=== PATIENT | female | born 1955 | race Hispanic/Latino ===

== ENCOUNTER 2021-05-06 14:06 | Inpatient (IN) | payer MEDICARE, MEDICAID ==
[2021-05-06 14:33] LABS: Actual Bicarbonate (HCO3a) 18.2 mEq/L (22-28); Base Excess (BEa) -11.2 mEq/L (-2.0 to +3.0); CO2 Tension 57.2 mmHg (35.0-45.0); Calcium, Ionized (arterial) 1.18 mmol/L (1.12-1.30); Carboxyhemoglobin (COHb) 0.4 gm% (0.0-3.0); Hemoglobin (Hb) 11.5 g/dL (12.0-16.0); Potassium - ABG Lab 5.6 mmol/L (3.70-5.30); Puncture Site RRA; pH, Arterial 7.12 (7.35-7.45)
[2021-05-06 14:45] LABS: Bilirubin Neg (Negative); Blood, Urine Negative (Negative); Glucose, Urine (Dipstick) Normal (Negative); Ketone, Urine Negative (Negative); Leukocyte Negative (Negative); Nitrite Negative (Negative); Protein, Urine (Dipstick) 500 mg/dl (Neg-Trace); Specific Gravity, Urine 1.025 (1.002-1.036); Urobilinogen Normal mg/dL (Less than 2)
[2021-05-06 14:49] LABS: Hemoglobin 10.2 g/dL (12.0-15.5); Mean Corpuscular HGB CONC 29.5 g/dL (32.0-36.0); Mean Corpuscular Hemoglobin 28.7 pg (27.0-33.0); Mean Corpuscular Volume 97.2 fl (81.6-98.3); Mean Platelet Volume 11.1 fl (7.4-10.4); Platelet Count 343 10x3/uL (150-450); RBC Distribution Width 14.9 % (11.5-14.5); Red Blood Cell (RBC) Count 3.56 10x6/uL (3.90-5.03); White Blood Cell (WBC) Count 28.2 10x3/uL (3.5-10.5)
[2021-05-06 14:50] LABS: MDiff Complete? YES; Manual Diff?? YES
[2021-05-06 14:56] LABS: Clarity Cloudy (Clear)
[2021-05-06 15:01] LABS: Bacteria/HPF 1+ HPF (None Seen); Mucous/LPF 1+ LPF (<2+); Renal Epithelial 0-3 HPF (None Seen); Squamous Epithelial 0-3 HPF (0-3); WBC/HPF 0-3 HPF (0-3)
[2021-05-06 15:02] LABS: White Blood Cell Cast 0-3 LPF (None Seen)
[2021-05-06 15:03] LABS: ALT (SGPT) 8 U/L (8-55); AST (SGOT) 12 U/L (5-34); Albumin 3.4 g/dL (3.4-4.8); Alkaline Phosphatase 114 U/L (40-110); Anion Gap 18 mmol/L (10-20); BUN (Urea Nitrogen) 48 mg/dL (9.8-20.1); Bilirubin, Total 0.4 mg/dL (0.2-1.2); Calc. Creatinine Clearance 0 mL/min (70-130); Calcium 8.2 mg/dL (7.8-10.44); Carbon Dioxide 17 mmol/L (23-31); Chloride 102 mmol/L (98-107); Globulin 3.3 g/dL (2.4-3.5); Glucose 149 mg/dL (80-115); Protein, Total 6.7 g/dL (5.8-8.1); Sodium 131 mmol/L (136-145)
[2021-05-06] MEDS ORDERED: Sodium Bicarb 50 MEQ/50 ML Abboject 8.4% SYRINGE ONE ×2 (15:06→15:20)
[2021-05-06 15:11] LABS: Band 4 % (5-11); Lymphocytes 1 % (21-51); Monocytes 5 % (0-10); Neutrophil 89 % (42-75); Reactive Lymphocytes 1 % (0-10)
[2021-05-06 15:12] LABS: Platelet Morphology Comment Appears Adequate
[2021-05-06 15:14] LABS: Dohle Bodies SLIGHT; Toxic Granulation SLIGHT; Vacuoles SLIGHT
[2021-05-06 15:15] LABS: Anisocytosis SLIGHT = 6-15 cells (100X) (0-5/hpf)
[2021-05-06] MEDS ORDERED: cefTRIAXone\\ROCEPHIN 1 GM VIAL ONE (16:39)
[2021-05-06 16:53] LABS: Base Excess (BEa) -7.1 mEq/L (-2.0 to +3.0); CO2 Tension 62.5 mmHg (35.0-45.0); Calcium, Ionized (arterial) 1.16 mmol/L (1.12-1.30); Carboxyhemoglobin (COHb) 0.2 gm% (0.0-3.0); Hemoglobin (Hb) 11.3 g/dL (12.0-16.0); Potassium - ABG Lab 5.5 mmol/L (3.70-5.30); Puncture Site RRA; pH, Arterial 7.16 (7.35-7.45)
[2021-05-06] MEDS ORDERED: Acetaminophen 650 MG Suppository PR PRN (16:57)
[2021-05-06] MEDS ORDERED: Senokot S 8.6-50 MG TAB PO PRN (16:57)
[2021-05-06] MEDS ORDERED: Ondansetron PF 4 MG/2 ML Vial IVP PRN (16:57)
[2021-05-06 16:58] LABS: ALV-art Gradient 344.275 mmHg (0-20)
[2021-05-06] MEDS ORDERED: Insulin Regular 300 UNITS/3 ML VIAL IVP SCH (17:02)
[2021-05-06] MEDS ORDERED: Dextrose 5% in Water 1,000 ML IV PRN (17:05)
[2021-05-06] MEDS ORDERED: Dextrose 50% Abboject 50 ML SYRINGE SLOW IVP PRN (17:05)
[2021-05-06] MEDS ORDERED: Albuterol Sulfate 2.5 mg/3 ml Neb NEB SCH (17:15)
[2021-05-06] MEDS ORDERED: Sodium Bicarbonate 75 MEQ in Sodium Chloride 0.45% 1,000 ML IV SCH (17:15)
[2021-05-06] MEDS ORDERED: Dextrose 50% Abboject 50 ML SYRINGE SLOW IVP SCH (17:15)
[2021-05-06] MEDS ORDERED: VANCOMYCIN 2 GRAM/400 ML BAG 2 GM in Premix Bag 1 BAG IVPB SCH (18:30)
[2021-05-06] MEDS ORDERED: Calcium Gluconate 4.6 MEQ in Sodium Chloride 0.9% 100 ML IVPB SCH (18:36)
[2021-05-06] MEDS ORDERED: Sodium Bicarbonate 150 MEQ, Admixture Fee 1 EACH in Dextrose 5% in Water 1,000 ML IV SCH (18:45)
[2021-05-06 19:02] LABS: Creatinine, Urine 135.85 mg/dL (47-110); Protein, Urine Random Quant Less than 10 mg/dL (1-14)
[2021-05-06 20:04] LABS: Strep pneumo Urine Ag NEGATIVE (NEGATIVE)
[2021-05-06] MEDS: Heparin 5,000 UNITS/ML VIAL SC SCH (20:51)
[2021-05-06] MEDS: Cefepime 1 GM in Sodium Chloride 0.9% 100 ML IVPB SCH (20:51)
[2021-05-06] MEDS: Famotidine/PF 20 mg/2ml Vial SLOW IVP SCH (20:52)
[2021-05-06 21:03] LABS: Anion Gap 15 mmol/L (10-20); BUN (Urea Nitrogen) 52 mg/dL (9.8-20.1); Calc. Creatinine Clearance 44 mL/min (70-130); Calcium 8.7 mg/dL (7.8-10.44); Carbon Dioxide 22 mmol/L (23-31); Chloride 101 mmol/L (98-107); Glucose 214 mg/dL (80-115); Potassium 4.8 mmol/L (3.5-5.1); Sodium 133 mmol/L (136-145)
[2021-05-06 21:42] LABS: Actual Bicarbonate (HCO3a) 21.5 mEq/L (22-28); Calcium, Ionized (arterial) 1.17 mmol/L (1.12-1.30); Carboxyhemoglobin (COHb) 0.1 gm% (0.0-3.0); Hemoglobin (Hb) 10.6 g/dL (12.0-16.0); O2 Tension (PaO2), arterial 164.8 mmHg (> 80.0); Potassium - ABG Lab 4.8 mmol/L (3.70-5.30); Puncture Site LRA; pH, Arterial 7.13 (7.35-7.45)
[2021-05-06] MEDS ORDERED: Fentanyl BOLUS 250 ML IVPB PRN (23:15)
[2021-05-06] MEDS ORDERED: Morphine 2 MG/ML VIAL SLOW IVP PRN (23:15)
[2021-05-06] MEDS ORDERED: Lorazepam 2 MG/ML VIAL SLOW IVP PRN (23:15)
[2021-05-06] MEDS ORDERED: DISCONTINUE PREVIOUS NARCOTIC PAIN MEDICATIONS AND BENZODIAZEPINES FS SCH (23:15)
[2021-05-06] MEDS ORDERED: fentaNYL Citrate-0.9 % NaCl/PF 100 ML IVPB SCH (23:15)
[2021-05-06] MEDS ORDERED: Propofol BOLUS 1,000 MG/100 ML VIAL IV PRN (23:15)
[2021-05-06] MEDS ORDERED: Propofol 1,000 MG/100 ML VIAL IV ONE (23:18)
[2021-05-06] MEDS ORDERED: Rocuronium Bromide 10 MG/ML (10ML VIAL) ONE (23:25)
[2021-05-07] MEDS: hydrALAZINE 20 MG/ML VIAL SLOW IVP PRN (00:56)
[2021-05-07 01:00] LABS: Actual Bicarbonate (HCO3a) 21.2 mEq/L (22-28); Base Excess (BEa) -4.7 mEq/L (-2.0 to +3.0); CO2 Tension 42.2 mmHg (35.0-45.0); Calcium, Ionized (arterial) 1.11 mmol/L (1.12-1.30); Carboxyhemoglobin (COHb) 0.7 gm% (0.0-3.0); Hemoglobin (Hb) 11.8 g/dL (12.0-16.0); Potassium - ABG Lab 4.8 mmol/L (3.70-5.30); Puncture Site LRA; pH, Arterial 7.32 (7.35-7.45)
[2021-05-07] MEDS ORDERED: Midazolam HCl 2 mg/2 ml Vial IVP SCH (02:15)
[2021-05-07] MEDS: Propofol 1,000 MG/100 ML VIAL IV PRN ×7 (02:35→21:57)
[2021-05-07 04:01] LABS: Hemoglobin 8.9 g/dL (12.0-15.5); Mean Corpuscular HGB CONC 31.3 g/dL (32.0-36.0); Mean Corpuscular Hemoglobin 28.9 pg (27.0-33.0); Mean Corpuscular Volume 92.2 fl (81.6-98.3); Mean Platelet Volume 11.8 fl (7.4-10.4); Platelet Count 324 10x3/uL (150-450); RBC Distribution Width 14.8 % (11.5-14.5); Red Blood Cell (RBC) Count 3.08 10x6/uL (3.90-5.03); White Blood Cell (WBC) Count 18.5 10x3/uL (3.5-10.5)
[2021-05-07 04:14] LABS: Albumin 2.9 g/dL (3.4-4.8); Anion Gap 18 mmol/L (10-20); BUN (Urea Nitrogen) 53 mg/dL (9.8-20.1); BUN/Creatinine Ratio 17.43; Calc. Creatinine Clearance 45 mL/min (70-130); Carbon Dioxide 20 mmol/L (23-31); Chloride 102 mmol/L (98-107); Glucose 193 mg/dL (80-115); Phosphorus 5.6 mg/dL (2.3-4.7); Potassium 4.7 mmol/L (3.5-5.1); Sodium 135 mmol/L (136-145)
[2021-05-07 04:25] LABS: Eosinophils 2 % (0-10); Lymphocytes 5 % (21-51); Monocytes 5 % (0-10); Neutrophil 87 % (42-75)
[2021-05-07 04:26] LABS: Platelet Morphology Comment Appears Adequate; RBC Morphology Normal
[2021-05-07 04:32] LABS: MDiff Complete? YES
[2021-05-07 07:42] LABS: Actual Bicarbonate (HCO3a) 18.9 mEq/L (22-28); Base Excess (BEa) -4.5 mEq/L (-2.0 to +3.0); Calcium, Ionized (arterial) 1.05 mmol/L (1.12-1.30); Carboxyhemoglobin (COHb) 0.2 gm% (0.0-3.0); Hemoglobin (Hb) 9.4 g/dL (12.0-16.0); O2 Tension (PaO2), arterial 134.3 mmHg (> 80.0); Potassium - ABG Lab 4.2 mmol/L (3.70-5.30); Puncture Site LRA; pH, Arterial 7.43 (7.35-7.45)
[2021-05-07] MEDS: Heparin 5,000 UNITS/ML VIAL SC SCH ×3 (09:23→20:00)
[2021-05-07] MEDS: Cefepime 1 GM in Sodium Chloride 0.9% 100 ML IVPB SCH ×2 (09:23→19:59)
[2021-05-07] MEDS: Sodium Bicarbonate 75 MEQ, Admixture Fee 1 EACH in Dextrose 5% in Water 500 ML IV SCH ×3 (09:46→23:53)
[2021-05-07] MEDS: HumaLOG 300 UNITS/3 ML VIAL SC PRN ×3 (12:54→22:00)
[2021-05-07 18:03] LABS: Vancomycin, Random 23.3 ug/mL (See Comment)
[2021-05-07] MEDS: Famotidine/PF 20 mg/2ml Vial SLOW IVP SCH (19:59)
[2021-05-07 20:05] LABS: Sodium, Urine 156 mmol/L (Not Available)
[2021-05-07 20:10] LABS: Urea Nitrogen, Random Urine 544 mg/dl
[2021-05-08] MEDS: Propofol 1,000 MG/100 ML VIAL IV PRN ×9 (01:47→22:36)
[2021-05-08 04:07] LABS: Hemoglobin 8.9 g/dL (12.0-15.5); Mean Corpuscular HGB CONC 32.1 g/dL (32.0-36.0); Mean Corpuscular Hemoglobin 29.1 pg (27.0-33.0); Mean Corpuscular Volume 90.5 fl (81.6-98.3); Mean Platelet Volume 11.6 fl (7.4-10.4); Platelet Count 317 10x3/uL (150-450); RBC Distribution Width 14.8 % (11.5-14.5); Red Blood Cell (RBC) Count 3.06 10x6/uL (3.90-5.03); White Blood Cell (WBC) Count 15.1 10x3/uL (3.5-10.5)
[2021-05-08 04:10] LABS: Anion Gap 17 mmol/L (10-20); BUN (Urea Nitrogen) 57 mg/dL (9.8-20.1); Calc. Creatinine Clearance 47 mL/min (70-130); Calcium 8.1 mg/dL (7.8-10.44); Carbon Dioxide 24 mmol/L (23-31); Chloride 98 mmol/L (98-107); Glucose 189 mg/dL (80-115); Potassium 4.1 mmol/L (3.5-5.1); Sodium 135 mmol/L (136-145)
[2021-05-08 04:43] LABS: MDiff Complete? YES
[2021-05-08 04:44] LABS: Platelet Morphology Comment Appears Adequate; RBC Morphology Normal
[2021-05-08 04:47] LABS: Eosinophils 3 % (0-10); Lymphocytes 14 % (21-51); Monocytes 3 % (0-10); Neutrophil 80 % (42-75)
[2021-05-08] MEDS: HumaLOG 300 UNITS/3 ML VIAL SC PRN ×4 (05:21→22:15)
[2021-05-08] MEDS: Sodium Bicarbonate 75 MEQ, Admixture Fee 1 EACH in Dextrose 5% in Water 500 ML IV SCH ×2 (05:40→12:09)
[2021-05-08 07:40] LABS: Actual Bicarbonate (HCO3a) 24.3 mEq/L (22-28); Base Excess (BEa) 0.5 mEq/L (-2.0 to +3.0); CO2 Tension 35.4 mmHg (35.0-45.0); Calcium, Ionized (arterial) 0.99 mmol/L (1.12-1.30); Carboxyhemoglobin (COHb) 0.2 gm% (0.0-3.0); Hemoglobin (Hb) 9.1 g/dL (12.0-16.0); Puncture Site RRA; pH, Arterial 7.45 (7.35-7.45)
[2021-05-08] MEDS: Heparin 5,000 UNITS/ML VIAL SC SCH ×3 (08:24→22:00)
[2021-05-08] MEDS: Cefepime 1 GM in Sodium Chloride 0.9% 100 ML IVPB SCH ×2 (08:28→21:59)
[2021-05-08] MEDS: Albumin 25% 25 GM/100 ML BOT IVPB SCH ×2 (14:13→22:00)
[2021-05-08 18:37] LABS: Vancomycin, Random 18.8 ug/mL (See Comment)
[2021-05-08] MEDS: Famotidine/PF 20 mg/2ml Vial SLOW IVP SCH (22:00)
[2021-05-08] MEDS ORDERED: Furosemide 40 MG/4 ML VIAL SLOW IVP SCH (23:45)
[2021-05-09] MEDS: Propofol 1,000 MG/100 ML VIAL IV PRN ×7 (01:38→20:59)
[2021-05-09] MEDS: hydrALAZINE 20 MG/ML VIAL SLOW IVP PRN (02:36)
[2021-05-09 03:49] LABS: Hemoglobin 8.6 g/dL (12.0-15.5); Mean Corpuscular HGB CONC 32.5 g/dL (32.0-36.0); Mean Corpuscular Hemoglobin 28.8 pg (27.0-33.0); Mean Corpuscular Volume 88.6 fl (81.6-98.3); Mean Platelet Volume 11.4 fl (7.4-10.4); Platelet Count 363 10x3/uL (150-450); RBC Distribution Width 14.9 % (11.5-14.5); Red Blood Cell (RBC) Count 2.99 10x6/uL (3.90-5.03); White Blood Cell (WBC) Count 15.4 10x3/uL (3.5-10.5)
[2021-05-09 03:57] LABS: Anion Gap 18 mmol/L (10-20); BUN (Urea Nitrogen) 52 mg/dL (9.8-20.1); Calc. Creatinine Clearance 58 mL/min (70-130); Carbon Dioxide 24 mmol/L (23-31); Chloride 101 mmol/L (98-107); Potassium 3.8 mmol/L (3.5-5.1); Sodium 139 mmol/L (136-145)
[2021-05-09 03:58] LABS: Calcium 8.3 mg/dL (7.8-10.44); Glucose 209 mg/dL (80-115)
[2021-05-09 03:59] LABS: Iron 26 ug/dL (50-170); Iron Binding Capacity, Total 161 mcg/dL (265-497)
[2021-05-09 04:38] LABS: Platelet Morphology Comment Appears Adequate
[2021-05-09 04:39] LABS: RBC Morphology Normal
[2021-05-09 04:46] LABS: Eosinophils 1 % (0-10); Lymphocytes 12 % (21-51); Monocytes 8 % (0-10); Neutrophil 79 % (42-75)
[2021-05-09 05:20] LABS: MDiff Complete? YES
[2021-05-09] MEDS: HumaLOG 300 UNITS/3 ML VIAL SC PRN ×4 (05:54→22:25)
[2021-05-09] MEDS ORDERED: Vancomycin HCl 750 MG in Sodium Chloride 0.9% 250 ML 250 ML IVPB SCH (06:00)
[2021-05-09] MEDS: Albumin 25% 25 GM/100 ML BOT IVPB SCH (06:11)
[2021-05-09] MEDS ORDERED: Iron, Sodium Ferric Gluconate 250 MG in Sodium Chloride 0.9% 250 ML 250 ML IVPB SCH ×2 (09:00→12:15)
[2021-05-09] MEDS ORDERED: Furosemide 40 MG/4 ML VIAL SLOW IVP SCH ×2 (09:00→10:30)
[2021-05-09] MEDS: Amlodipine 5 MG TAB PO SCH (10:16)
[2021-05-09] MEDS: Cefepime 1 GM in Sodium Chloride 0.9% 100 ML IVPB SCH ×2 (10:17→20:59)
[2021-05-09] MEDS: Heparin 5,000 UNITS/ML VIAL SC SCH ×3 (10:17→21:00)
[2021-05-09] MEDS ORDERED: Polyethylene Glycol 3350 17 GM Packet PER TUBE SCH (11:00)
[2021-05-09] MEDS ORDERED: Metoprolol Tartrate 25 MG TAB PO SCH (11:00)
[2021-05-09] MEDS: Dexmedetomidine In 0.9 % NaCl 100 ML IVPB SCH ×2 (11:20→20:59)
[2021-05-09] MEDS: Famotidine/PF 20 mg/2ml Vial SLOW IVP SCH (21:00)
[2021-05-09] MEDS: Metoprolol Tartrate 25 MG TAB PO SCH (21:00)
[2021-05-10 04:22] LABS: Hemoglobin 8.3 g/dL (12.0-15.5); Mean Corpuscular HGB CONC 31.6 g/dL (32.0-36.0); Mean Corpuscular Hemoglobin 28.7 pg (27.0-33.0); Mean Platelet Volume 11.8 fl (7.4-10.4); Platelet Count 363 10x3/uL (150-450); RBC Distribution Width 14.8 % (11.5-14.5); Red Blood Cell (RBC) Count 2.89 10x6/uL (3.90-5.03)
[2021-05-10 04:32] LABS: Anion Gap 19 mmol/L (10-20); BUN (Urea Nitrogen) 58 mg/dL (9.8-20.1); Calc. Creatinine Clearance 54 mL/min (70-130); Calcium 8.5 mg/dL (7.8-10.44); Carbon Dioxide 24 mmol/L (23-31); Chloride 101 mmol/L (98-107); Glucose 236 mg/dL (80-115); Potassium 3.7 mmol/L (3.5-5.1); Sodium 140 mmol/L (136-145)
[2021-05-10 04:45] LABS: MDiff Complete? YES; Platelet Morphology Comment Appears Adequate; RBC Morphology Normal
[2021-05-10 04:47] LABS: Eosinophils 3 % (0-10); Lymphocytes 14 % (21-51); Monocytes 6 % (0-10); Neutrophil 77 % (42-75); Vancomycin, Random 19.8 ug/mL (See Comment)
[2021-05-10] MEDS: HumaLOG 300 UNITS/3 ML VIAL SC PRN ×5 (05:52→23:50)
[2021-05-10] MEDS: hydrALAZINE 20 MG/ML VIAL SLOW IVP PRN ×2 (05:54→20:51)
[2021-05-10] MEDS: Amlodipine 5 MG TAB PO SCH (08:22)
[2021-05-10] MEDS: Cefepime 1 GM in Sodium Chloride 0.9% 100 ML IVPB SCH ×2 (08:23→20:38)
[2021-05-10] MEDS: Metoprolol Tartrate 25 MG TAB PO SCH ×2 (08:24→20:39)
[2021-05-10] MEDS: Polyethylene Glycol 3350 17 GM Packet PER TUBE SCH (08:24)
[2021-05-10] MEDS: Heparin 5,000 UNITS/ML VIAL SC SCH ×3 (08:24→20:37)
[2021-05-10] MEDS ORDERED: Furosemide 40 MG/4 ML VIAL SLOW IVP SCH ×2 (09:00→21:45)
[2021-05-10] MEDS: Iron, Sodium Ferric Gluconate 250 MG in Sodium Chloride 0.9% 250 ML 250 ML IVPB SCH (09:24)
[2021-05-10 10:46] LABS: Actual Bicarbonate (HCO3a) 26.9 mEq/L (22-28); Base Excess (BEa) 4.2 mEq/L (-2.0 to +3.0); Calcium, Ionized (arterial) 1.06 mmol/L (1.12-1.30); Carboxyhemoglobin (COHb) 0.1 gm% (0.0-3.0); Hemoglobin (Hb) 9.5 g/dL (12.0-16.0); O2 Tension (PaO2), arterial 70.4 mmHg (> 80.0); Potassium - ABG Lab 3.4 mmol/L (3.70-5.30); Puncture Site LRA; pH, Arterial 7.53 (7.35-7.45)
[2021-05-10] MEDS ORDERED: Racepinephrine 2.25% 0.5 ML NEB ONE (11:24)
[2021-05-10] MEDS ORDERED: Dexamethasone 4 mg/ml Vial ONE (11:37)
[2021-05-10] MEDS ORDERED: Morphine 4 MG/ML VIAL ONE (11:51)
[2021-05-10] MEDS ORDERED: Morphine 2 MG/ML VIAL SLOW IVP PRN (11:53)
[2021-05-10] MEDS ORDERED: Racepinephrine 2.25% 0.5 ML NEB NEB PRN (11:54)
[2021-05-10] MEDS: Dexmedetomidine In 0.9 % NaCl 100 ML IVPB SCH ×4 (12:15→20:37)
[2021-05-10] MEDS ORDERED: Dexamethasone 10 MG/ML VIAL SLOW IVP SCH (12:30)
[2021-05-10] MEDS ORDERED: Dexamethasone 10 MG/ML VIAL SLOW IVP ONE (12:30)
[2021-05-10] MEDS: Morphine 4 MG/ML VIAL SLOW IVP PRN ×2 (13:15→22:30)
[2021-05-10] MEDS: Furosemide 40 MG/4 ML VIAL SLOW IVP SCH (14:03)
[2021-05-10] MEDS: Dexamethasone 4 mg/ml Vial SLOW IVP SCH ×2 (16:42→23:50)
[2021-05-10] MEDS: Famotidine/PF 20 mg/2ml Vial SLOW IVP SCH (20:37)
[2021-05-10 22:29] LABS: Anion Gap 23 mmol/L (10-20); BUN (Urea Nitrogen) 64 mg/dL (9.8-20.1); Calc. Creatinine Clearance 53 mL/min (70-130); Calcium 9.5 mg/dL (7.8-10.44); Carbon Dioxide 25 mmol/L (23-31); Chloride 100 mmol/L (98-107); Glucose 284 mg/dL (80-115); Magnesium 2.2 mg/dL (1.6-2.6); Potassium 4.7 mmol/L (3.5-5.1); Sodium 143 mmol/L (136-145)
[2021-05-11] MEDS: Dexmedetomidine In 0.9 % NaCl 100 ML IVPB SCH ×2 (00:03→02:09)
[2021-05-11] MEDS: hydrALAZINE 20 MG/ML VIAL SLOW IVP PRN (01:17)
[2021-05-11] MEDS: Morphine 4 MG/ML VIAL SLOW IVP PRN (03:19)
[2021-05-11 04:15] LABS: Anion Gap 21 mmol/L (10-20); BUN (Urea Nitrogen) 69 mg/dL (9.8-20.1); Calc. Creatinine Clearance 56 mL/min (70-130); Calcium 9.8 mg/dL (7.8-10.44); Carbon Dioxide 26 mmol/L (23-31); Chloride 100 mmol/L (98-107); Glucose 283 mg/dL (80-115); Potassium 4.4 mmol/L (3.5-5.1); Sodium 143 mmol/L (136-145)
[2021-05-11 04:16] LABS: Band 2 % (5-11); Hemoglobin 9.5 g/dL (12.0-15.5); Large Platelets SLIGHT; Lymphocytes 7 % (21-51); MDiff Complete? YES; Mean Corpuscular HGB CONC 31.3 g/dL (32.0-36.0); Mean Corpuscular Hemoglobin 28.5 pg (27.0-33.0); Mean Corpuscular Volume 91.3 fl (81.6-98.3); Mean Platelet Volume 11.3 fl (7.4-10.4); Neutrophil 90 % (42-75); Nucleated RBC 1 % (0); Platelet Count 428 10x3/uL (150-450); Platelet Morphology Comment Appears Adequate; RBC Distribution Width 14.9 % (11.5-14.5); RBC Morphology Normal; Red Blood Cell (RBC) Count 3.33 10x6/uL (3.90-5.03); White Blood Cell (WBC) Count 16.9 10x3/uL (3.5-10.5)
[2021-05-11 04:22] LABS: Vancomycin, Random 14.3 ug/mL (See Comment)
[2021-05-11] MEDS ORDERED: Vancomycin HCl 500 MG in Sodium Chloride 0.9% 100 ML IVPB SCH (05:00)
[2021-05-11] MEDS: Dexamethasone 4 mg/ml Vial SLOW IVP SCH ×4 (05:57→23:08)
[2021-05-11] MEDS: HumaLOG 300 UNITS/3 ML VIAL SC PRN ×4 (05:58→21:27)
[2021-05-11] MEDS: Furosemide 40 MG/4 ML VIAL SLOW IVP SCH ×2 (06:29→13:47)
[2021-05-11] MEDS: Amlodipine 5 MG TAB PO SCH (09:19)
[2021-05-11] MEDS: Cefepime 1 GM in Sodium Chloride 0.9% 100 ML IVPB SCH ×2 (09:20→21:26)
[2021-05-11] MEDS: Metoprolol Tartrate 25 MG TAB PO SCH ×2 (09:21→21:26)
[2021-05-11] MEDS: Polyethylene Glycol 3350 17 GM Packet PER TUBE SCH (09:22)
[2021-05-11] MEDS: Iron, Sodium Ferric Gluconate 250 MG in Sodium Chloride 0.9% 250 ML 250 ML IVPB SCH (09:57)
[2021-05-11] MEDS: Heparin 5,000 UNITS/ML VIAL SC SCH ×3 (10:02→21:26)
[2021-05-11] MEDS ORDERED: Cefepime 1 GM VIAL ONE (21:22)
[2021-05-11] MEDS: Famotidine/PF 20 mg/2ml Vial SLOW IVP SCH (21:26)
[2021-05-11 23:36] LABS: Mycoplasma pneumoniae IgG AB Less than 100 U/mL (0-99); Mycoplasma pneumoniae IgM AB Less than 770 U/mL (0-769)
[2021-05-12] MEDS: Acetaminophen 325 MG TAB PO PRN ×3 (00:05→09:29)
[2021-05-12] MEDS: HumaLOG 300 UNITS/3 ML VIAL SC PRN ×2 (01:30→05:54)
[2021-05-12 04:58] LABS: Vancomycin, Random 15.5 ug/mL (See Comment)
[2021-05-12] MEDS ORDERED: Vancomycin HCl 500 MG in Sodium Chloride 0.9% 100 ML IVPB SCH (05:15)
[2021-05-12] MEDS: Furosemide 40 MG/4 ML VIAL SLOW IVP SCH (05:24)
[2021-05-12] MEDS: Dexamethasone 4 mg/ml Vial SLOW IVP SCH ×3 (05:24→21:19)
[2021-05-12 05:50] LABS: Albumin 3.5 g/dL (3.4-4.8); Anion Gap 20 mmol/L (10-20); BUN (Urea Nitrogen) 77 mg/dL (9.8-20.1); BUN/Creatinine Ratio 38.69; Calc. Creatinine Clearance 66 mL/min (70-130); Calcium 9.5 mg/dL (7.8-10.44); Carbon Dioxide 25 mmol/L (23-31); Chloride 94 mmol/L (98-107); Glucose 314 mg/dL (80-115); Phosphorus 3.7 mg/dL (2.3-4.7); Potassium 3.7 mmol/L (3.5-5.1); Sodium 135 mmol/L (136-145)
[2021-05-12] MEDS: Cefepime 1 GM in Sodium Chloride 0.9% 100 ML IVPB SCH ×2 (09:27→21:19)
[2021-05-12] MEDS: Iron, Sodium Ferric Gluconate 250 MG in Sodium Chloride 0.9% 250 ML 250 ML IVPB SCH (09:27)
[2021-05-12] MEDS: Amlodipine 5 MG TAB PO SCH (09:28)
[2021-05-12] MEDS: Metoprolol Tartrate 25 MG TAB PO SCH ×2 (09:28→21:20)
[2021-05-12] MEDS: Heparin 5,000 UNITS/ML VIAL SC SCH ×3 (09:28→21:19)
[2021-05-12] MEDS: Polyethylene Glycol 3350 17 GM Packet PER TUBE SCH (09:28)
[2021-05-12] MEDS ORDERED: Insulin Regular 300 UNITS/3 ML VIAL SC PRN (11:14)
[2021-05-12] MEDS ORDERED: HumaLOG 300 UNITS/3 ML VIAL SC PRN (11:30)
[2021-05-12] MEDS: hydrALAZINE 20 MG/ML VIAL SLOW IVP PRN (11:46)
[2021-05-12] MEDS ORDERED: Insulin Regular 300 UNITS/3 ML VIAL IVP SCH (15:15)
[2021-05-12] MEDS ORDERED: Insulin Regular 300 UNITS/3 ML VIAL ONE (15:27)
[2021-05-12] MEDS ORDERED: HumaLOG 300 UNITS/3 ML VIAL SC SCH (17:00)
[2021-05-12 17:21] LABS: Glucose POC Confirmation 680 mg/dl (80-115)
[2021-05-12] MEDS ORDERED: INSULIN REGULAR IN 0.9 % NACL 100 UNIT in Premix Bag 1 BAG IVPB SCH ×2 (18:45→20:45)
[2021-05-12] MEDS ORDERED: Sodium Chloride 0.9% 1,000 ML IV PRN ×4 (20:12)
[2021-05-12] MEDS ORDERED: D5 1/2 NS w/20 mEq KCL 1,000 ML IV PRN (20:12)
[2021-05-12] MEDS ORDERED: Dextrose 5 %-0.45 % NaCl 1,000 ML IV PRN (20:12)
[2021-05-12] MEDS ORDERED: Electrolyte Replacement Protocol 1 EACH IVPB SCH (20:12)
[2021-05-12] MEDS ORDERED: NS 0.9% w/ 20 MEQ KCL 1,000 ML IV PRN ×2 (20:12)
[2021-05-12] MEDS ORDERED: Lantus 1000 UNITS/10 ML VIAL SC SCH (21:00)
[2021-05-12] MEDS: Famotidine/PF 20 mg/2ml Vial SLOW IVP SCH (21:19)
[2021-05-12 21:36] LABS: L.pneumophilia Abs <0.91 OD ratio (0.00-0.90)
[2021-05-12 21:42] LABS: Anion Gap 17 mmol/L (10-20); BUN (Urea Nitrogen) 81 mg/dL (9.8-20.1); Calc. Creatinine Clearance 60 mL/min (70-130); Calcium 8.6 mg/dL (7.8-10.44); Carbon Dioxide 32 mmol/L (23-31); Chloride 88 mmol/L (98-107); Glucose 434 mg/dL (80-115); Magnesium 2.3 mg/dL (1.6-2.6); Phosphorus 2.1 mg/dL (2.3-4.7); Potassium 4.2 mmol/L (3.5-5.1); Sodium 133 mmol/L (136-145)
[2021-05-13 01:09] LABS: Anion Gap 16 mmol/L (10-20); BUN (Urea Nitrogen) 75 mg/dL (9.8-20.1); Calc. Creatinine Clearance 68 mL/min (70-130); Carbon Dioxide 30 mmol/L (23-31); Chloride 94 mmol/L (98-107); Glucose 204 mg/dL (80-115); Sodium 136 mmol/L (136-145)
[2021-05-13 01:50] LABS: Anion Gap 16 mmol/L (10-20); BUN (Urea Nitrogen) 75 mg/dL (9.8-20.1); Calc. Creatinine Clearance 67 mL/min (70-130); Calcium 8.8 mg/dL (7.8-10.44); Carbon Dioxide 30 mmol/L (23-31); Chloride 96 mmol/L (98-107); Glucose 174 mg/dL (80-115); Potassium 4.1 mmol/L (3.5-5.1); Sodium 138 mmol/L (136-145)
[2021-05-13] MEDS ORDERED: Dextrose 50% Abboject 50 ML SYRINGE SLOW IVP PRN (02:08)
[2021-05-13] MEDS ORDERED: Dextrose 5% in Water 1,000 ML IV PRN (02:08)
[2021-05-13] MEDS: Lantus 1000 UNITS/10 ML VIAL SC SCH ×2 (03:11→13:49)
[2021-05-13] MEDS: HumaLOG 300 UNITS/3 ML VIAL SC PRN ×4 (05:07→21:13)
[2021-05-13 06:12] LABS: Albumin 3.3 g/dL (3.4-4.8); Anion Gap 21 mmol/L (10-20); BUN (Urea Nitrogen) 75 mg/dL (9.8-20.1); BUN/Creatinine Ratio 40.98; Calc. Creatinine Clearance 65 mL/min (70-130); Carbon Dioxide 26 mmol/L (23-31); Chloride 95 mmol/L (98-107); Glucose 272 mg/dL (80-115); Phosphorus 2.4 mg/dL (2.3-4.7); Potassium 4.7 mmol/L (3.5-5.1); Sodium 137 mmol/L (136-145)
[2021-05-13 06:20] LABS: Vancomycin, Random 13.9 ug/mL (See Comment)
[2021-05-13] MEDS ORDERED: HumaLOG 300 UNITS/3 ML VIAL SC SCH (08:00)
[2021-05-13 08:55] VITALS: BMI 57.5
[2021-05-13] MEDS: Amlodipine 5 MG TAB PO SCH (08:55)
[2021-05-13] MEDS: Cefepime 1 GM in Sodium Chloride 0.9% 100 ML IVPB SCH ×2 (08:56→20:30)
[2021-05-13] MEDS: Metoprolol Tartrate 25 MG TAB PO SCH ×2 (08:56→20:29)
[2021-05-13] MEDS: Dexamethasone 4 mg/ml Vial SLOW IVP SCH ×2 (08:57→20:30)
[2021-05-13] MEDS: Heparin 5,000 UNITS/ML VIAL SC SCH ×3 (08:57→20:30)
[2021-05-13] MEDS: Polyethylene Glycol 3350 17 GM Packet PER TUBE SCH (08:58)
[2021-05-13] MEDS ORDERED: Vancomycin HCl 750 MG in Sodium Chloride 0.9% 250 ML 250 ML IVPB SCH (09:00)
[2021-05-13 10:24] LABS: #Basophils 0.1 10x3/uL (0.0-0.2); #Monocytes 1.4 10x3/uL (0.0-1.1); #Neutrophils 10.5 10x3/uL (1.5-8.4); %Basophils 0.3 % (0.0-2.0); %Eosinophils 0.1 % (0.0-6.0); %Lymphocytes 14.9 % (18.0-47.0); %Monocytes 9.3 % (0.0-10.0); %Neutrophils 70.7 % (40.0-75.0); Hemoglobin 9.9 g/dL (12.0-15.5); Mean Corpuscular HGB CONC 31.3 g/dL (32.0-36.0); Mean Corpuscular Hemoglobin 28.2 pg (27.0-33.0); Mean Platelet Volume 11.4 fl (7.4-10.4); Platelet Count 440 10x3/uL (150-450); RBC Distribution Width 14.4 % (11.5-14.5); Red Blood Cell (RBC) Count 3.51 10x6/uL (3.90-5.03); White Blood Cell (WBC) Count 14.9 10x3/uL (3.5-10.5)
[2021-05-13] MEDS ORDERED: Bumetanide 1 MG TAB PO PRN (16:20)
[2021-05-13] MEDS: HumaLOG 300 UNITS/3 ML VIAL SC SCH (16:53)
[2021-05-13] MEDS: hydrALAZINE 25 MG TAB PO SCH (20:29)
[2021-05-13] MEDS: Citalopram 20 MG TAB PO SCH (20:30)
[2021-05-13] MEDS: Famotidine/PF 20 mg/2ml Vial SLOW IVP SCH (20:30)
[2021-05-13] MEDS: Simvastatin 10 MG TAB PO SCH (20:37)
[2021-05-13] MEDS: ALPRAZolam 0.5 MG TAB PO PRN (21:16)
[2021-05-13] MEDS: Acetaminophen/Codeine 30-300mg Tablet PO PRN (21:18)
[2021-05-14] MEDS: hydrALAZINE 20 MG/ML VIAL SLOW IVP PRN (01:00)
[2021-05-14] MEDS ORDERED: Lorazepam 2 MG/ML VIAL SLOW IVP SCH (02:00)
[2021-05-14] MEDS: Lantus 1000 UNITS/10 ML VIAL SC SCH ×2 (02:20→08:38)
[2021-05-14] MEDS: HumaLOG 300 UNITS/3 ML VIAL SC PRN (04:35)
[2021-05-14 04:50] LABS: Albumin 3.2 g/dL (3.4-4.8); Anion Gap 17 mmol/L (10-20); BUN (Urea Nitrogen) 68 mg/dL (9.8-20.1); BUN/Creatinine Ratio 40.72; Calc. Creatinine Clearance 71 mL/min (70-130); Calcium 8.8 mg/dL (7.8-10.44); Carbon Dioxide 27 mmol/L (23-31); Chloride 95 mmol/L (98-107); Glucose 341 mg/dL (80-115); Phosphorus 2.3 mg/dL (2.3-4.7); Potassium 4.3 mmol/L (3.5-5.1); Sodium 135 mmol/L (136-145); Vancomycin, Random 13.8 ug/mL (See Comment)
[2021-05-14 05:15] LABS: #Monocytes 0.8 10x3/uL (0.0-1.1); #Neutrophils 9.9 10x3/uL (1.5-8.4); %Basophils 0.3 % (0.0-2.0); %Lymphocytes 13.5 % (18.0-47.0); %Monocytes 6.3 % (0.0-10.0); %Neutrophils 75.2 % (40.0-75.0); Mean Corpuscular HGB CONC 32.4 g/dL (32.0-36.0); Mean Corpuscular Hemoglobin 28.8 pg (27.0-33.0); Mean Platelet Volume 11.4 fl (7.4-10.4); Platelet Count 400 10x3/uL (150-450); RBC Distribution Width 14.1 % (11.5-14.5); Red Blood Cell (RBC) Count 3.47 10x6/uL (3.90-5.03); White Blood Cell (WBC) Count 13.1 10x3/uL (3.5-10.5)
[2021-05-14] MEDS: Vancomycin HCl 750 MG in Sodium Chloride 0.9% 250 ML 250 ML IVPB SCH (05:21)
[2021-05-14] MEDS: Amlodipine 10 MG TAB PO SCH (08:30)
[2021-05-14] MEDS: Heparin 5,000 UNITS/ML VIAL SC SCH ×3 (08:30→20:53)
[2021-05-14] MEDS: Aspirin 81 mg Enteric Coated Tablet PO SCH (08:30)
[2021-05-14] MEDS: Clopidogrel Bisulfate 75 MG TAB PO SCH (08:30)
[2021-05-14] MEDS: Metoprolol Tartrate 25 MG TAB PO SCH ×2 (08:30→20:54)
[2021-05-14] MEDS: Montelukast Sodium 10 mg Tablet PO SCH (08:30)
[2021-05-14] MEDS: hydrALAZINE 25 MG TAB PO SCH ×3 (08:31→20:54)
[2021-05-14] MEDS: Cefepime 1 GM in Sodium Chloride 0.9% 100 ML IVPB SCH ×2 (08:31→20:54)
[2021-05-14] MEDS: Fluticasone Propionate Nasal Spray 16 gm Bottle NASAL SCH (08:33)
[2021-05-14] MEDS: Polyethylene Glycol 3350 17 GM Packet PER TUBE SCH (08:34)
[2021-05-14] MEDS: HumaLOG 300 UNITS/3 ML VIAL SC SCH ×4 (08:39→16:17)
[2021-05-14] MEDS: ALPRAZolam 0.5 MG TAB PO PRN (20:53)
[2021-05-14] MEDS: Acetaminophen/Codeine 30-300mg Tablet PO PRN (20:53)
[2021-05-14] MEDS: Citalopram 20 MG TAB PO SCH (20:53)
[2021-05-14] MEDS: Famotidine/PF 20 mg/2ml Vial SLOW IVP SCH (20:54)
[2021-05-14] MEDS: Simvastatin 10 MG TAB PO SCH (20:55)
[2021-05-15 05:16] LABS: Hemoglobin 10.4 g/dL (12.0-15.5); Mean Corpuscular HGB CONC 31.5 g/dL (32.0-36.0); Mean Corpuscular Hemoglobin 28.7 pg (27.0-33.0); Mean Corpuscular Volume 91.2 fl (81.6-98.3); Mean Platelet Volume 11.4 fl (7.4-10.4); Platelet Count 394 10x3/uL (150-450); RBC Distribution Width 14.1 % (11.5-14.5); Red Blood Cell (RBC) Count 3.62 10x6/uL (3.90-5.03); White Blood Cell (WBC) Count 16.1 10x3/uL (3.5-10.5)
[2021-05-15] MEDS: HumaLOG 300 UNITS/3 ML VIAL SC PRN (06:20)
[2021-05-15 06:21] LABS: Albumin 3.1 g/dL (3.4-4.8); Anion Gap 19 mmol/L (10-20); BUN (Urea Nitrogen) 80 mg/dL (9.8-20.1); Calc. Creatinine Clearance 62 mL/min (70-130); Calcium 8.7 mg/dL (7.8-10.44); Carbon Dioxide 23 mmol/L (23-31); Chloride 99 mmol/L (98-107); Glucose 228 mg/dL (80-115); Phosphorus 3.6 mg/dL (2.3-4.7); Potassium 4.3 mmol/L (3.5-5.1); Sodium 137 mmol/L (136-145)
[2021-05-15] MEDS ORDERED: Vancomycin HCl 750 MG VIAL ONE (06:24)
[2021-05-15 06:27] LABS: Band 4 % (5-11); Eosinophils 6 % (0-10); Lymphocytes 25 % (21-51); Monocytes 6 % (0-10); Myelocyte 1 % (0-0); Neutrophil 55 % (42-75); Nucleated RBC 1 % (0)
[2021-05-15 06:28] LABS: Reactive Lymphocytes 3 % (0-10)
[2021-05-15 06:29] LABS: Hypersemented Neutrophil MODERATE; Large Platelets SLIGHT; Platelet Clumps SLIGHT; Platelet Morphology Comment Appears Adequate
[2021-05-15 06:30] LABS: MDiff Complete? YES
[2021-05-15 06:31] LABS: RBC Morphology Normal
[2021-05-15] MEDS: Vancomycin HCl 750 MG in Sodium Chloride 0.9% 250 ML 250 ML IVPB SCH (06:38)
[2021-05-15] MEDS: HumaLOG 300 UNITS/3 ML VIAL SC SCH ×3 (08:06→17:20)
[2021-05-15] MEDS: Lantus 1000 UNITS/10 ML VIAL SC SCH (08:07)
[2021-05-15] MEDS: Amlodipine 10 MG TAB PO SCH (08:17)
[2021-05-15] MEDS: Aspirin 81 mg Enteric Coated Tablet PO SCH (08:19)
[2021-05-15] MEDS: Polyethylene Glycol 3350 17 GM Packet PER TUBE SCH (08:21)
[2021-05-15] MEDS: Cefepime 1 GM in Sodium Chloride 0.9% 100 ML IVPB SCH ×2 (08:27→21:50)
[2021-05-15] MEDS: Clopidogrel Bisulfate 75 MG TAB PO SCH (08:30)
[2021-05-15] MEDS: Heparin 5,000 UNITS/ML VIAL SC SCH ×3 (08:31→21:34)
[2021-05-15] MEDS: hydrALAZINE 25 MG TAB PO SCH ×3 (08:32→21:35)
[2021-05-15] MEDS: Fluticasone Propionate Nasal Spray 16 gm Bottle NASAL SCH (08:50)
[2021-05-15] MEDS: Montelukast Sodium 10 mg Tablet PO SCH (08:52)
[2021-05-15] MEDS: Metoprolol Tartrate 25 MG TAB PO SCH ×2 (08:55→21:34)
[2021-05-15 10:27] LABS: Bilirubin Neg (Negative); Blood, Urine 25 (Negative); Clarity Clear (Clear); Glucose, Urine (Dipstick) Normal (Negative); Ketone, Urine Negative (Negative); Leukocyte Negative (Negative); Nitrite Negative (Negative); Protein, Urine (Dipstick) 500 mg/dl (Neg-Trace); Specific Gravity, Urine 1.015 (1.002-1.036); Urobilinogen Normal mg/dL (Less than 2)
[2021-05-15 10:49] LABS: Urine Culture Reflex No No
[2021-05-15 10:50] LABS: Bacteria/HPF Rare-Few HPF (None Seen); RBC/HPF 0-3 HPF (0-3); Squamous Epithelial 0-3 HPF (0-3)
[2021-05-15] MEDS ORDERED: Sodium Chloride 0.9% 1,000 ML IV SCH (16:00)
[2021-05-15] MEDS: Famotidine/PF 20 mg/2ml Vial SLOW IVP SCH (21:30)
[2021-05-15] MEDS: Simvastatin 10 MG TAB PO SCH (21:35)
[2021-05-15] MEDS: Citalopram 20 MG TAB PO SCH (21:36)
[2021-05-16 06:58] LABS: #Basophils 0.1 10x3/uL (0.0-0.2); #Eosinphils 0.6 10x3/uL (0.0-0.5); #Monocytes 0.9 10x3/uL (0.0-1.1); #Neutrophils 13.3 10x3/uL (1.5-8.4); %Basophils 0.4 % (0.0-2.0); %Eosinophils 3.1 % (0.0-6.0); %Lymphocytes 14.6 % (18.0-47.0); %Monocytes 4.8 % (0.0-10.0); %Neutrophils 73.8 % (40.0-75.0); Hemoglobin 11.2 g/dL (12.0-15.5); Mean Corpuscular HGB CONC 30.8 g/dL (32.0-36.0); Mean Corpuscular Hemoglobin 28.6 pg (27.0-33.0); Mean Corpuscular Volume 92.9 fl (81.6-98.3); Mean Platelet Volume 11.7 fl (7.4-10.4); Platelet Count 382 10x3/uL (150-450); RBC Distribution Width 14.1 % (11.5-14.5); Red Blood Cell (RBC) Count 3.92 10x6/uL (3.90-5.03); White Blood Cell (WBC) Count 18.1 10x3/uL (3.5-10.5)
[2021-05-16 07:12] LABS: Albumin 3.3 g/dL (3.4-4.8); Chloride 103 mmol/L (98-107); Phosphorus 2.9 mg/dL (2.3-4.7); Sodium 139 mmol/L (136-145); Vancomycin, Trough 16.2 ug/mL
[2021-05-16 07:13] LABS: BUN (Urea Nitrogen) 69 mg/dL (9.8-20.1); Calc. Creatinine Clearance 72 mL/min (70-130); Calcium 8.5 mg/dL (7.8-10.44); Carbon Dioxide 27 mmol/L (23-31); Glucose 196 mg/dL (80-115)
[2021-05-16 07:57] LABS: Anion Gap 13 mmol/L (10-20)
[2021-05-16] MEDS ORDERED: NIFEdipine XL 60 MG TAB PO SCH (09:00)
[2021-05-16] MEDS: hydrALAZINE 25 MG TAB PO SCH ×4 (09:01→21:03)
[2021-05-16] MEDS: Metoprolol Tartrate 25 MG TAB PO SCH ×2 (09:02→21:04)
[2021-05-16] MEDS: Heparin 5,000 UNITS/ML VIAL SC SCH ×4 (09:02→20:59)
[2021-05-16] MEDS: Clopidogrel Bisulfate 75 MG TAB PO SCH (09:02)
[2021-05-16] MEDS: Montelukast Sodium 10 mg Tablet PO SCH (09:02)
[2021-05-16] MEDS: Polyethylene Glycol 3350 17 GM Packet PER TUBE SCH (09:03)
[2021-05-16] MEDS: Aspirin 81 mg Enteric Coated Tablet PO SCH (09:03)
[2021-05-16] MEDS: Lantus 1000 UNITS/10 ML VIAL SC SCH (09:03)
[2021-05-16] MEDS: HumaLOG 300 UNITS/3 ML VIAL SC SCH ×4 (09:04→17:25)
[2021-05-16] MEDS: Fluticasone Propionate Nasal Spray 16 gm Bottle NASAL SCH (09:21)
[2021-05-16] MEDS: Cefepime 1 GM in Sodium Chloride 0.9% 100 ML IVPB SCH (15:08)
[2021-05-16] MEDS: Vancomycin HCl 750 MG in Sodium Chloride 0.9% 250 ML 250 ML IVPB SCH (15:08)
[2021-05-16] MEDS: Famotidine/PF 20 mg/2ml Vial SLOW IVP SCH (20:59)
[2021-05-16] MEDS: Citalopram 20 MG TAB PO SCH (20:59)
[2021-05-16] MEDS: Simvastatin 10 MG TAB PO SCH (20:59)
[2021-05-17 06:33] LABS: Anion Gap 12 mmol/L (10-20); BUN (Urea Nitrogen) 59 mg/dL (9.8-20.1); Calc. Creatinine Clearance 75 mL/min (70-130); Calcium 8.7 mg/dL (7.8-10.44); Carbon Dioxide 28 mmol/L (23-31); Chloride 102 mmol/L (98-107); Glucose 144 mg/dL (80-115); Sodium 138 mmol/L (136-145)
[2021-05-17] MEDS: HumaLOG 300 UNITS/3 ML VIAL SC SCH ×3 (09:54→18:10)
[2021-05-17] MEDS: Metoprolol Tartrate 25 MG TAB PO SCH ×2 (09:56→20:29)
[2021-05-17] MEDS: Fluticasone Propionate Nasal Spray 16 gm Bottle NASAL SCH (10:00)
[2021-05-17] MEDS: Heparin 5,000 UNITS/ML VIAL SC SCH ×3 (10:00→20:29)
[2021-05-17] MEDS: Lantus 1000 UNITS/10 ML VIAL SC SCH (10:01)
[2021-05-17] MEDS: Polyethylene Glycol 3350 17 GM Packet PER TUBE SCH ×2 (10:01→12:57)
[2021-05-17] MEDS ORDERED: Ondansetron ODT 4 MG TAB SL SCH (10:45)
[2021-05-17] MEDS ORDERED: Milk Of Magnesia 30 ML UDCUP PO PRN (12:49)
[2021-05-17] MEDS: Aspirin 81 mg Enteric Coated Tablet PO SCH (12:51)
[2021-05-17] MEDS: NIFEdipine XL 60 MG TAB PO SCH (12:52)
[2021-05-17] MEDS: Clopidogrel Bisulfate 75 MG TAB PO SCH (12:52)
[2021-05-17] MEDS: Montelukast Sodium 10 mg Tablet PO SCH (12:52)
[2021-05-17] MEDS: HumaLOG 300 UNITS/3 ML VIAL SC PRN (18:10)
[2021-05-17] MEDS: Citalopram 20 MG TAB PO SCH (20:29)
[2021-05-17] MEDS: Famotidine/PF 20 mg/2ml Vial SLOW IVP SCH (20:30)
[2021-05-17] MEDS: Simvastatin 10 MG TAB PO SCH (20:36)
[2021-05-18] MEDS: NIFEdipine XL 60 MG TAB PO SCH ×2 (00:05→09:40)
[2021-05-18 05:01] LABS: #Basophils 0.1 10x3/uL (0.0-0.2); #Eosinphils 0.6 10x3/uL (0.0-0.5); #Monocytes 0.9 10x3/uL (0.0-1.1); #Neutrophils 11.6 10x3/uL (1.5-8.4); %Basophils 0.4 % (0.0-2.0); %Eosinophils 3.5 % (0.0-6.0); %Lymphocytes 17.7 % (18.0-47.0); %Monocytes 5.7 % (0.0-10.0); Hemoglobin 9.9 g/dL (12.0-15.5); Mean Corpuscular HGB CONC 31.2 g/dL (32.0-36.0); Mean Corpuscular Hemoglobin 28.9 pg (27.0-33.0); Mean Corpuscular Volume 92.7 fl (81.6-98.3); Mean Platelet Volume 12.1 fl (7.4-10.4); Platelet Count 327 10x3/uL (150-450); RBC Distribution Width 14.6 % (11.5-14.5); Red Blood Cell (RBC) Count 3.42 10x6/uL (3.90-5.03); White Blood Cell (WBC) Count 16.4 10x3/uL (3.5-10.5)
[2021-05-18 05:59] LABS: Anion Gap 12 mmol/L (10-20); BUN (Urea Nitrogen) 55 mg/dL (9.8-20.1); Calc. Creatinine Clearance 71 mL/min (70-130); Calcium 8.6 mg/dL (7.8-10.44); Carbon Dioxide 28 mmol/L (23-31); Chloride 102 mmol/L (98-107); Glucose 120 mg/dL (80-115); Potassium 4.2 mmol/L (3.5-5.1); Sodium 138 mmol/L (136-145)
[2021-05-18] MEDS: Lantus 1000 UNITS/10 ML VIAL SC SCH (09:36)
[2021-05-18] MEDS: Acetaminophen 325 MG TAB PO PRN (09:39)
[2021-05-18] MEDS: Metoprolol Tartrate 25 MG TAB PO SCH (09:40)
[2021-05-18] MEDS: Clopidogrel Bisulfate 75 MG TAB PO SCH (09:40)
[2021-05-18] MEDS: Aspirin 81 mg Enteric Coated Tablet PO SCH (09:41)
[2021-05-18] MEDS: Heparin 5,000 UNITS/ML VIAL SC SCH ×2 (09:41→16:29)
[2021-05-18] MEDS: Polyethylene Glycol 3350 17 GM Packet PER TUBE SCH (09:47)
[2021-05-18] MEDS: HumaLOG 300 UNITS/3 ML VIAL SC SCH ×2 (12:39→12:47)
[2021-05-18] MEDS: Montelukast Sodium 10 mg Tablet PO SCH (12:48)
[2021-05-18 12:52] VITALS: BP 133/63; TEMP 98.1
[2021-05-20] MEDS ORDERED: Ergocalciferol 1.25 MG(50,000 UNITS) CAP PO SCH (09:00)
== END 2021-05-18 16:22 | disposition home or self-care (01) | DRG 871 ==
LOC: CSHERS 14:06 → CSHIMCU 14:07 → CSHTELE 05-11 02:30 → CSHIMCU 05-12 18:20 → CSHTELE 05-15 14:00
PROVIDERS: ADMIT Student in an Organized Health Care Education/Training Program; ATTEND Hospitalist
PROC: 5A1945Z Respiratory Ventilation, 24-96 Consecutive Hours (ICD-10-PCS; principal; 2021-05-06)
PROC: 0BH18EZ Insertion of Endotracheal Airway into Trachea, Via Natural or Artificial Opening Endoscopic (ICD-10-PCS; 2021-05-06)
PROC: 5A09357 Assistance with Respiratory Ventilation, Less than 24 Consecutive Hours, Continuous Positive Airway Pressure (ICD-10-PCS; 2021-05-06)
PROC: 06HY33Z Insertion of Infusion Device into Lower Vein, Percutaneous Approach (ICD-10-PCS; 2021-05-06)
PROC: 30233J1 Transfusion of Nonautologous Serum Albumin into Peripheral Vein, Percutaneous Approach (ICD-10-PCS; 2021-05-08)
PROC: 5A09357 Assistance with Respiratory Ventilation, Less than 24 Consecutive Hours, Continuous Positive Airway Pressure (ICD-10-PCS; 2021-05-10)
DX: A41.9 Sepsis, unspecified organism (principal); J18.9 Pneumonia, unspecified organism; E11.10 Type 2 diabetes mellitus with ketoacidosis without coma; J96.01 Acute respiratory failure with hypoxia; J96.02 Acute respiratory failure with hypercapnia; G93.41 Metabolic encephalopathy; J90 Pleural effusion, not elsewhere classified; N17.9 Acute kidney failure, unspecified; E87.4 Mixed disorder of acid-base balance; E87.1 Hypo-osmolality and hyponatremia; Z68.43 Body mass index [BMI] 50.0-59.9, adult; E87.5 Hyperkalemia; E11.22 Type 2 diabetes mellitus with diabetic chronic kidney disease; I12.9 Hypertensive chronic kidney disease with stage 1 through stage 4 chronic kidney disease, or unspecified chronic kidney disease; E87.6 Hypokalemia; Z20.822 Contact with and (suspected) exposure to COVID-19; E11.21 Type 2 diabetes mellitus with diabetic nephropathy; E66.01 Morbid (severe) obesity due to excess calories; D63.1 Anemia in chronic kidney disease; N18.30 Chronic kidney disease, stage 3 unspecified; D50.9 Iron deficiency anemia, unspecified; F41.9 Anxiety disorder, unspecified; D72.829 Elevated white blood cell count, unspecified; R11.0 Nausea; Z88.0 Allergy status to penicillin
CPT/HCPCS: 36415; 36416; 36556; 36600; 70450; 71045; 71046; 71250; 74018; 74177; 76770; 80048; 80053; 80069; 80202; 81001; 81003; 81015; 82010; 82040; 82550; 82570; 82728; 82805; 83036; 83540; 83550; 83605; 83735; 83880; 83930; 84100; 84145; 84156; 84300; 84484; 84540; 85007; 85025; 85027; 86713; 87040; 87070; 87081; 87086; 87205; 87449; 93005; 93306; 94002; 94003; 94640; 94660; 94760; 94762; 96374; 96375; 99292; J0360; J0610; J0692; J0696; J1100; J1644; J1815; J1940; J2060; J2250; J2270; J2704; J2916; J3370; J3480; J3490; J7050; J7070; J7620; P9047; Q0162; S0028